=== PATIENT | female | born 1965 | race Caucasian/White ===

== ENCOUNTER → 2016-04-21 17:08 | Outpatient (CLI) | payer BC | END | disposition home or self-care (01) | LOC: D.MAMMO 16:15 | DX: Z12.31 Encounter for screening mammogram for malignant neoplasm of breast (principal) ==

== ENCOUNTER → 2016-05-22 15:42 | Outpatient (CLI) | payer BC | END | disposition home or self-care (01) | LOC: D.MAMMO 10:00 | DX: R92.8 Other abnormal and inconclusive findings on diagnostic imaging of breast (principal) ==

== ENCOUNTER → 2016-11-26 18:50 | Outpatient (CLI) | payer BC | END | disposition home or self-care (01) | LOC: D.MAMMO 09:00 | DX: R05 Cough (principal) ==

== ENCOUNTER → 2017-04-23 19:41 | Outpatient (CLI) | payer BC | END | disposition home or self-care (01) | LOC: D.MAMMO 08:00 | DX: R92.8 Other abnormal and inconclusive findings on diagnostic imaging of breast (principal) ==

== ENCOUNTER → 2017-11-23 18:11 | Outpatient (CLI) | payer BC | END | disposition home or self-care (01) | LOC: D.MAMMO 16:00 | DX: Z12.31 Encounter for screening mammogram for malignant neoplasm of breast (principal) ==

== ENCOUNTER 2018-01-17 08:00 | Outpatient (CLI) | payer BC | END 2018-01-17 09:00 | disposition home or self-care (01) | LOC: D.MAMMO 08:00 | DX: R92.8 Other abnormal and inconclusive findings on diagnostic imaging of breast (principal) ==

== ENCOUNTER 2018-02-06 22:23 | Observation (INO) | payer BC ==
[~2018-02-06] VITALS: Ht 152.4 cm; Wt 90.9 kg
--- NOTE | ~2018-02-06 | CN ---
PATIENT NAME:JOCELYN CHASE MEDICAL RECORD: [id number] : 69 LOCATION:[facility]- ADMIT DATE: 02/07/18 ACCOUNT: [id number] CONSULTING PHYSICIAN: JOSEMANUEL JOHNSON MD REFERRING PHYSICIAN: TIBURCIO OLMEDO MD DATE OF CONSULTATION: 02/07/2018 CARDIOLOGY CONSULT DATE OF SERVICE: 02/07/2018 DIAGNOSIS: Uncontrolled hypertension. HISTORY OF PRESENT ILLNESS: Mrs. Chase presents with a high blood pressure. She has been followed by her primary. She was previously on bisoprolol, this with doubled approximately 2 months ago. Still did not control her blood pressure, her bisoprolol was stopped as she was placed on losartan HCT. She still had her blood pressures over 180 to 200 range. She is totally asymptomatic. No chest pain. No chest discomfort. She has asthma, so she has been intermittently short of breath, but this has responded to her inhaler. No increased overall in her shortness of breath. Her EKG is normal. Troponin is normal. Her systolic blood pressure still in the 170 range, heart rates are in the 80s. At this time, I would suggest continuing the losartan HCT and adding back the bisoprolol; hopefully, with the combination of both agents for blood pressure will be controlled. The only cardiac test that I would get would be an echocardiogram to assess her degree of left ventricular hypertrophy and possible LV dysfunction due to the longstanding hypertension. TRANSINT:[id number] Voice Confirmation ID: [id number] DOCUMENT ID: [id number] JOSEMANUEL JOHNSON MD at 1324 CC: [id number] DICTATION DATE: 02/07/18 1020 SOAP GRINDER: 02/07/18 1121 DIS IN 02/07/18 [id number] [place] [address]
[2018-02-06] MEDS ORDERED: METFORMIN HCL500 M1 PO (22:32)
[2018-02-06] MEDS ORDERED: LOSARTAN-HCTZ1 EAC2 PO (22:32)
[2018-02-06] MEDS ORDERED: GABAPENTIN100 MG PO (22:32)
[2018-02-06] MEDS ORDERED: NEXIUM20 MG (22:33)
[2018-02-06] MEDS ORDERED: GLUCOTROL 5 MG T5 MG PO (22:33)
[2018-02-06 23:03] LABS: BASOPHILS 0.2 % (0-2); EOSINOPHILS 1.6 % (0-7); HEMATOCRIT 46.9 % (36.0-48.0); HEMOGLOBIN 16.1 g/dL (12-16); IMMATURE GRANULOCYTES 0.2 % (0-5); LYMPHOCYTES 29.9 % (15-50); MCH 33.6 pg (26.0-34.0); MCHC 34.3 g/dL (31.0-37.0); MCV 97.9 fL (80.0-100.0); MEAN PLATELET VOLUME 9.2 fL (7.4-10.4); MONOCYTES 7.8 % (2-11); NEUTROPHILS 60.3 % (40-80); PLATELET COUNT 148 10x3/uL (130-400); RBC 4.79 10x6/uL (4.00-5.40); RDW 13.6 % (11.5-14.5); WBC 6.1 10x3/uL (4.8-10.8)
[2018-02-06 23:17] LABS: ALBUMIN 3.2 g/dL (3.4-5.0); ANION GAP 13.2 mmol/L (8-16); BILIRUBIN - TOTAL 0.9 mg/dL (0.2-1.3); CARBON DIOXIDE 29.5 mmol/L (21.0-32.0); POTASSIUM - SERUM 3.7 mmol/L (3.5-5.1); PROTEIN - SERUM 7.1 g/dL (6.4-8.2)
[2018-02-06 23:27] LABS: TROPONIN-I 0.021 ng/mL (0.000-0.060)
[2018-02-07] VITALS (8 sets, daily range): BP systolic 155–188; BP diastolic 68–91; Ht 152.4 cm; Wt 90.9 kg
[2018-02-07 05:49] LABS: CKMB 1.7 U/L (0.0-3.6); CREATINE KINASE 70 UL (21-215); TROPONIN-I 0.016 ng/mL (0.000-0.060)
[2018-02-07] MEDS ORDERED: Nicoderm [PBKC] TRANSDERM (11:08)
[2018-02-07 11:41] LABS: CKMB 1.3 U/L (0.0-3.6); CREATINE KINASE 59 UL (21-215)
[2018-02-07 11:42] LABS: TROPONIN-I < 0.017 ng/mL (0.000-0.060)
== END 2018-02-07 12:05 | disposition home or self-care (01) ==
LOC: D.ER 22:23 → D.EDHOLD 02-07 00:35 → OBSVTIME 02-07 00:35 → D.EDHOLD 02-07 12:05
PROVIDERS: Emergency Medicine
DX: I16.0 Hypertensive urgency (principal); E83.42 Hypomagnesemia; E11.9 Type 2 diabetes mellitus without complications; F10.10 Alcohol abuse, uncomplicated; F17.213 Nicotine dependence, cigarettes, with withdrawal

== ENCOUNTER 2018-08-15 08:00 | Outpatient (CLI) | payer BC ==
[2018-02-07 10:12] VITALS: BMI 39.1
[~2018-08-15 08:00] MED LIST: GABAPENTIN100 MG PO; GLUCOTROL 5 MG T5 MG PO; LOSARTAN-HCTZ1 EAC2 PO; METFORMIN HCL500 M1 PO; NEXIUM20 MG; Nicoderm [PBKC] TRANSDERM
== END 2018-08-15 23:59 | disposition home or self-care (01) ==
LOC: D.MAMMO 08:00
PROVIDERS: ATTEND Nurse Practitioner Family
DX: R92.8 Other abnormal and inconclusive findings on diagnostic imaging of breast (principal)

== ENCOUNTER 2019-02-20 13:30 | Outpatient (CLI) | payer BC ==
[2018-02-07 10:12] VITALS: BMI 39.1
== END 2019-02-20 14:00 | disposition home or self-care (01) ==
LOC: D.MAMMO 13:30
PROVIDERS: ATTEND Family Medicine
DX: R92.8 Other abnormal and inconclusive findings on diagnostic imaging of breast (principal)